=== PATIENT | female | born 1960 | race Caucasian/White ===

== ENCOUNTER 2019-03-23 01:07 | Inpatient (IN) ==
[2019-03-23] MEDS ORDERED: Ketorolac 30 MG/ML VIAL IVP PRN (03:09)
[2019-03-23] MEDS ORDERED: *HR* FentaNYL (PF) 100 MCG/2 ML VIAL IVP ONE (03:26)
[2019-03-23 03:48] LABS: Basophils % 0.2 %; Eosinophils % 0.1 %; Hematocrit 43.2 % (35.3-44.9); Hemoglobin 14.9 g/dL (11.5-15.4); Immature Granulocytes % 0.2 % (0-4); Lymphocytes # 0.9 K/mcL (0.6-4.6); Lymphocytes % 10.5 %; Mean Corpuscular HGB Conc 34.5 g/dL (31.6-35.5); Mean Corpuscular Hemoglobin 30.8 pg (28.0-33.3); Mean Corpuscular Volume 89.4 fL (83.0-100.0); Mean Platelet Volume 10.2 fL (9.4-12.4); Monocytes # 0.3 K/mcL (0.0-1.3); Neutrophils # 7.7 K/mcL (1.6-8.9); Platelet Count 230 K/mcL (140-400); Red Blood Count 4.83 M/mcL (3.82-4.97); Red Cell Distribution Width 13.3 % (11.5-14.5)
[2019-03-23 04:00] LABS: INR 1.1
[2019-03-23 04:03] LABS: Activated Partial Thrombo Time 30.9 Seconds (26.0-36.0)
[2019-03-23 04:07] LABS: Phosphorous 3.3 mg/dL (2.7-4.5)
[2019-03-23 04:08] LABS: Alanine Aminotransferase 9 Units/L (7-52); Albumin 4.4 g/dL (3.5-5.7); Albumin/Globulin Ratio 1.4 (1.1-2.2); Alkaline Phosphatase 84 Units/L (34-104); Aspartate Amino Transferase 16 Units/L (13-39); BUN/Creatinine Ratio 11 (6-26); Bilirubin,Direct 0.2 mg/dL (0.0-0.2); Bilirubin,Indirect 0.5 mg/dL (0.0-1.2); Bilirubin,Total 0.7 mg/dL (0.3-1.0); Blood Urea Nitrogen 8 mg/dL (8-23); Calcium 9.6 mg/dL (8.6-10.3); Carbon Dioxide 29 mEq/L (23-29); Chloride 94 mEq/L (98-107); Globulin 3.2 g/dL (2.4-3.5); Glucose 147 mg/dL (70-105); Magnesium 2.2 mg/dL (1.6-2.6); Osmolality,Calculated 277 (280-300); Potassium 3.2 mEq/L (3.5-5.1); Sodium 133 mEq/L (136-145); Total Protein 7.6 g/dL (6.4-8.9); eGFR For African Americans > 60 (> 60); eGFR For Non-African Americans > 60 (> 60)
[2019-03-23] MEDS: 0.9 % Sodium Chloride w KCl 40 MEQ/1,000 ML MLS IVC SCH ×2 (04:11→09:50)
[2019-03-23 04:27] LABS: Thyroid Stimulating Hormone 0.917 mcIU/mL (0.340-5.600)
[2019-03-23] MEDS ORDERED: *HR* FentaNYL (PF) 100 MCG/2 ML VIAL IVP PRN (08:19)
[2019-03-23] MEDS: Pantoprazole 40 MG VIAL IVP SCH (08:56)
[2019-03-23] MEDS: Sennosides/Docusate Sodium TABLET PO SCH ×2 (13:57→20:05)
[2019-03-23] MEDS: 0.9 % Sodium Chloride 1,000 ML IVC SCH (15:03)
[2019-03-23] MEDS: Ondansetron 4 MG/2 ML VIAL IVP PRN (15:56)
[2019-03-23] MEDS: *HR* Promethazine 25 MG/ML VIAL IVP PRN (20:02)
[2019-03-23] MEDS ORDERED: Milk and Molasses Enema 200 ML RC ONE (21:55)
[2019-03-23] MEDS: Lactulose Oral Soln 20 GM/30 ML UDC PO SCH (23:19)
[2019-03-24 02:05] LABS: Hematocrit 44.2 % (35.3-44.9); Hemoglobin 15.3 g/dL (11.5-15.4); Mean Corpuscular HGB Conc 34.6 g/dL (31.6-35.5); Mean Corpuscular Hemoglobin 30.4 pg (28.0-33.3); Mean Corpuscular Volume 87.9 fL (83.0-100.0); Mean Platelet Volume 10.4 fL (9.4-12.4); Platelet Count 266 K/mcL (140-400); Red Blood Count 5.03 M/mcL (3.82-4.97); Red Cell Distribution Width 13.6 % (11.5-14.5); White Blood Count 9.9 K/mcL (4.3-11.1)
[2019-03-24 02:31] LABS: BUN/Creatinine Ratio 16 (6-26); Blood Urea Nitrogen 10 mg/dL (8-23); Calcium 9.1 mg/dL (8.6-10.3); Carbon Dioxide 28 mEq/L (23-29); Chloride 102 mEq/L (98-107); Glucose 138 mg/dL (70-105); Osmolality,Calculated 291 (280-300); Sodium 140 mEq/L (136-145); eGFR For African Americans > 60 (> 60); eGFR For Non-African Americans > 60 (> 60)
[2019-03-24] MEDS: *HR* Promethazine 25 MG/ML VIAL IVP PRN (04:43)
[2019-03-24] MEDS: 0.9 % Sodium Chloride 1,000 ML IVC SCH ×2 (04:43→20:06)
[2019-03-24] MEDS: Lactulose Oral Soln 20 GM/30 ML UDC PO SCH ×4 (06:57→22:06)
[2019-03-24] MEDS: Sennosides/Docusate Sodium TABLET PO SCH ×2 (08:35→22:06)
[2019-03-24] MEDS: Pantoprazole 40 MG VIAL IVP SCH (08:35)
[2019-03-24] MEDS ORDERED: Milk and Molasses Enema 200 ML RC ONE (12:09)
[2019-03-24] MEDS: Ondansetron 4 MG/2 ML VIAL IVP PRN (20:03)
[2019-03-25 05:10] LABS: Hematocrit 40.7 % (35.3-44.9); Mean Corpuscular HGB Conc 33.7 g/dL (31.6-35.5); Mean Corpuscular Hemoglobin 30.4 pg (28.0-33.3); Mean Corpuscular Volume 90.2 fL (83.0-100.0); Mean Platelet Volume 10.6 fL (9.4-12.4); Platelet Count 211 K/mcL (140-400); Red Blood Count 4.51 M/mcL (3.82-4.97); Red Cell Distribution Width 13.7 % (11.5-14.5)
[2019-03-25 05:11] LABS: Hemoglobin 13.7 g/dL (11.5-15.4)
[2019-03-25 05:53] LABS: Alanine Aminotransferase 10 Units/L (7-52); Albumin 3.6 g/dL (3.5-5.7); Albumin/Globulin Ratio 1.4 (1.1-2.2); Alkaline Phosphatase 61 Units/L (34-104); Aspartate Amino Transferase 23 Units/L (13-39); BUN/Creatinine Ratio 19 (6-26); Bilirubin,Total 0.4 mg/dL (0.3-1.0); Blood Urea Nitrogen 13 mg/dL (8-23); Calcium 8.8 mg/dL (8.6-10.3); Carbon Dioxide 26 mEq/L (23-29); Chloride 100 mEq/L (98-107); Globulin 2.6 g/dL (2.4-3.5); Glucose 112 mg/dL (70-105); Osmolality,Calculated 287 (280-300); Potassium 2.8 mEq/L (3.5-5.1); Sodium 138 mEq/L (136-145); Total Protein 6.2 g/dL (6.4-8.9); eGFR For African Americans > 60 (> 60); eGFR For Non-African Americans > 60 (> 60)
[2019-03-25] MEDS: Ondansetron 4 MG/2 ML VIAL IVP PRN (06:39)
[2019-03-25] MEDS ORDERED: Methylnaltrexone 12 MG/0.6 ML SYRINGE SQ ONE (10:37)
[2019-03-25] MEDS ORDERED: Bisacodyl 10 MG RECTAL SUPPOSITORY RC PRN (10:40)
[2019-03-25] MEDS ORDERED: *HR* HYDROcodone/Acet 10/325 mg TABLET PO PRN (10:53)
[2019-03-25] MEDS: 0.9 % Sodium Chloride 1,000 ML IVC SCH (11:13)
[2019-03-25] MEDS: Pantoprazole 40 MG VIAL IVP SCH (11:13)
[2019-03-25] MEDS: Lactulose Oral Soln 20 GM/30 ML UDC PO SCH ×3 (11:13→19:50)
[2019-03-25] MEDS: Sennosides/Docusate Sodium TABLET PO SCH ×2 (11:14→19:50)
[2019-03-26] MEDS: 0.9 % Sodium Chloride 1,000 ML IVC SCH ×2 (00:50→17:56)
[2019-03-26 01:36] LABS: Hematocrit 41.1 % (35.3-44.9); Hemoglobin 13.6 g/dL (11.5-15.4); Mean Corpuscular HGB Conc 33.1 g/dL (31.6-35.5); Mean Corpuscular Hemoglobin 30.8 pg (28.0-33.3); Mean Corpuscular Volume 93.2 fL (83.0-100.0); Mean Platelet Volume 10.3 fL (9.4-12.4); Platelet Count 179 K/mcL (140-400); Red Blood Count 4.41 M/mcL (3.82-4.97); Red Cell Distribution Width 13.7 % (11.5-14.5)
[2019-03-26 02:00] LABS: Alanine Aminotransferase 13 Units/L (7-52); Albumin 3.6 g/dL (3.5-5.7); Albumin/Globulin Ratio 1.5 (1.1-2.2); Alkaline Phosphatase 57 Units/L (34-104); Aspartate Amino Transferase 24 Units/L (13-39); BUN/Creatinine Ratio 24 (6-26); Bilirubin,Total 0.5 mg/dL (0.3-1.0); Blood Urea Nitrogen 18 mg/dL (8-23); Calcium 8.8 mg/dL (8.6-10.3); Carbon Dioxide 29 mEq/L (23-29); Chloride 100 mEq/L (98-107); Globulin 2.4 g/dL (2.4-3.5); Glucose 95 mg/dL (70-105); Osmolality,Calculated 290 (280-300); Potassium 3.1 mEq/L (3.5-5.1); Sodium 139 mEq/L (136-145); eGFR For African Americans > 60 (> 60); eGFR For Non-African Americans > 60 (> 60)
[2019-03-26] MEDS ORDERED: Potassium Chloride 20 MEQ, Lidocaine 1% 2 ML in 0.9 % Sodium Chloride 250 ML IVPB ONE (02:22)
[2019-03-26] MEDS: Lactulose Oral Soln 20 GM/30 ML UDC PO SCH ×2 (08:25→17:41)
[2019-03-26] MEDS: Sennosides/Docusate Sodium TABLET PO SCH (08:26)
[2019-03-26] MEDS: Pantoprazole 40 MG VIAL IVP SCH (08:34)
[2019-03-26] MEDS ORDERED: *HR* FentaNYL (PF) 100 MCG/2 ML VIAL ONE ×3 (12:19→21:41)
[2019-03-26] MEDS ORDERED: *HR* Midazolam HCl 5 MG/5 ML VIAL IVP ONE (12:20)
[2019-03-26] MEDS: *HR* FentaNYL (PF) 100 MCG/2 ML VIAL IVP ONE ×2 (12:30→12:39)
[2019-03-26] MEDS: *HR* Midazolam HCl 5 MG/5 ML VIAL IVP ONE ×2 (12:30→12:36)
[2019-03-26] MEDS ORDERED: *HR* Meperidine 25 MG/ML SYRINGE IVP PRN (18:42)
[2019-03-26] MEDS ORDERED: Acetaminophen IV 1,000 MG/100 ML INFUS..BTL IVPB ONE (18:42)
[2019-03-26] MEDS ORDERED: *HR* Midazolam HCl 2 MG/2 ML VIAL IVP PRN (18:42)
[2019-03-26] MEDS ORDERED: Ringers Solution, Lactated 1,000 ML IVC SCH (18:45)
[2019-03-26] MEDS ORDERED: *HR* Propofol 200 MG/20 ML VIAL IVP ONE (18:51)
[2019-03-26] MEDS ORDERED: Piperacillin/Tazobactam 3.375 GM in 0.9 % Sodium Chloride Mini Bag 100 ML IVPB ONE (19:00)
[2019-03-26] MEDS ORDERED: Lidocaine -MPF 2% 2 ML VIAL ONE (19:16)
[2019-03-26] MEDS ORDERED: *HR* Midazolam HCl 2 MG/2 ML VIAL ONE (19:17)
[2019-03-26] MEDS ORDERED: Acetaminophen IV 1,000 MG/100 ML INFUS..BTL ONE (19:26)
[2019-03-26] MEDS ORDERED: *HR* PHENYLEPHRINE 1,000 MCG/10 ML SYRINGE IVP ONE (19:42)
[2019-03-26] MEDS ORDERED: EPHEDrine 50 MG/ML VIAL ONE (19:43)
[2019-03-26] MEDS ORDERED: *HR* HYDROMORPHONE 2 MG/ML VIAL ONE (20:01)
[2019-03-26] MEDS ORDERED: *HR* Magnesium Sulfate 1 GM/2 ML VIAL ONE (20:13)
[2019-03-26] MEDS ORDERED: Neostigmine Methylsulfate 3 MG/3 ML SYRINGE ONE (21:35)
[2019-03-26] MEDS: *HR* HYDROmorphone (PF) 1 MG/ML SYRINGE IVP PRN ×2 (23:29→23:43)
[2019-03-27] MEDS: Ondansetron 4 MG/2 ML VIAL IVP PRN
[2019-03-27] MEDS: *HR* HYDROmorphone (PF) 1 MG/ML SYRINGE IVP PRN ×4 (00:01→00:44)
[2019-03-27] MEDS: Lactulose Oral Soln 20 GM/30 ML UDC PO SCH (00:11)
[2019-03-27] MEDS: Sennosides/Docusate Sodium TABLET PO SCH (00:12)
[2019-03-27] MEDS ORDERED: *HR* FentaNYL PATCH 25 MCG PATCH TD SCH ×2 (00:30→04:30)
[2019-03-27] MEDS ORDERED: *HR* Heparin 5,000 UNIT/ML VIAL SQ SCH (01:33)
[2019-03-27] MEDS ORDERED: *HR* FentaNYL (PF) 100 MCG/2 ML VIAL IVP PRN (01:33)
[2019-03-27] MEDS ORDERED: Acetaminophen IV 1,000 MG/100 ML INFUS..BTL IVPB SCH ×3 (01:33→03:00)
[2019-03-27] MEDS ORDERED: Piperacillin/Tazobactam 3.375 GM in 0.9 % Sodium Chloride Mini Bag 100 ML IVPB SCH (01:33)
[2019-03-27] MEDS ORDERED: Ondansetron 4 MG/2 ML VIAL IVP PRN (01:33)
[2019-03-27] MEDS: 0.9 % Sodium Chloride 1,000 ML IVC SCH ×4 (02:17→20:33)
[2019-03-27] MEDS: Acetaminophen IV 1,000 MG/100 ML INFUS..BTL IVPB SCH ×4 (03:04→20:23)
[2019-03-27] MEDS: Piperacillin/Tazobactam 3.375 GM in 0.9 % Sodium Chloride Mini Bag 100 ML IVPB SCH ×3 (05:01→20:22)
[2019-03-27] MEDS: *HR* Heparin 5,000 UNIT/ML VIAL SQ SCH ×2 (05:03→18:12)
[2019-03-27 06:32] LABS: Hematocrit 43.4 % (35.3-44.9); Hemoglobin 13.9 g/dL (11.5-15.4); Mean Corpuscular Hemoglobin 30.3 pg (28.0-33.3); Mean Corpuscular Volume 94.8 fL (83.0-100.0); Mean Platelet Volume 10.9 fL (9.4-12.4); Platelet Count 277 K/mcL (140-400); Red Blood Count 4.58 M/mcL (3.82-4.97)
[2019-03-27 06:52] LABS: White Blood Count 13.9 K/mcL (4.3-11.1)
[2019-03-27 06:55] LABS: Alanine Aminotransferase 18 Units/L (7-52); Albumin 2.8 g/dL (3.5-5.7); Albumin/Globulin Ratio 1.6 (1.1-2.2); Alkaline Phosphatase 42 Units/L (34-104); Aspartate Amino Transferase 22 Units/L (13-39); BUN/Creatinine Ratio 26 (6-26); Bilirubin,Total 1.2 mg/dL (0.3-1.0); Blood Urea Nitrogen 22 mg/dL (8-23); Calcium 7.7 mg/dL (8.6-10.3); Carbon Dioxide 21 mEq/L (23-29); Chloride 107 mEq/L (98-107); Globulin 1.7 g/dL (2.4-3.5); Glucose 128 mg/dL (70-105); Osmolality,Calculated 295 (280-300); Potassium 4.1 mEq/L (3.5-5.1); Sodium 140 mEq/L (136-145); Total Protein 4.5 g/dL (6.4-8.9); eGFR For African Americans > 60 (> 60); eGFR For Non-African Americans > 60 (> 60)
[2019-03-27 08:21] LABS: Carcinoembryonic Antigen 0.6 ng/mL (Less than 5.0)
[2019-03-27] MEDS ORDERED: Levothyroxine Sodium 100 MCG VIAL IVP SCH (09:00)
[2019-03-27] MEDS: Pantoprazole 40 MG VIAL IVP SCH (09:07)
[2019-03-27] MEDS: Fluconazole 200 MG/100 ML 200 MG/100 ML BAG IVPB SCH (09:09)
[2019-03-27] MEDS ORDERED: Piperacillin/Tazobactam 3.375 GM in 0.9 % Sodium Chloride Mini Bag 100 ML IVPB ONE (19:00)
[2019-03-28] MEDS: Piperacillin/Tazobactam 3.375 GM in 0.9 % Sodium Chloride Mini Bag 100 ML IVPB SCH ×3 (03:56→18:55)
[2019-03-28] MEDS: Acetaminophen IV 1,000 MG/100 ML INFUS..BTL IVPB SCH ×4 (03:56→21:39)
[2019-03-28] MEDS: 0.9 % Sodium Chloride 1,000 ML IVC SCH ×2 (04:02→12:02)
[2019-03-28 06:03] LABS: Hematocrit 32.8 % (35.3-44.9); Mean Corpuscular HGB Conc 33.2 g/dL (31.6-35.5); Mean Corpuscular Hemoglobin 30.3 pg (28.0-33.3); Mean Corpuscular Volume 91.1 fL (83.0-100.0); Mean Platelet Volume 10.9 fL (9.4-12.4); Platelet Count 177 K/mcL (140-400); Red Cell Distribution Width 14.3 % (11.5-14.5); White Blood Count 10.3 K/mcL (4.3-11.1)
[2019-03-28 06:07] LABS: Hemoglobin 10.9 g/dL (11.5-15.4)
[2019-03-28] MEDS: *HR* Heparin 5,000 UNIT/ML VIAL SQ SCH ×2 (06:14→18:14)
[2019-03-28 06:40] LABS: Alanine Aminotransferase 13 Units/L (7-52); Albumin 2.6 g/dL (3.5-5.7); Albumin/Globulin Ratio 1.2 (1.1-2.2); Alkaline Phosphatase 36 Units/L (34-104); Aspartate Amino Transferase 16 Units/L (13-39); BUN/Creatinine Ratio 26 (6-26); Bilirubin,Total 0.7 mg/dL (0.3-1.0); Blood Urea Nitrogen 25 mg/dL (8-23); Calcium 7.9 mg/dL (8.6-10.3); Carbon Dioxide 26 mEq/L (23-29); Chloride 109 mEq/L (98-107); Globulin 2.1 g/dL (2.4-3.5); Glucose 120 mg/dL (70-105); Osmolality,Calculated 298 (280-300); Sodium 141 mEq/L (136-145); Total Protein 4.7 g/dL (6.4-8.9); eGFR For African Americans > 60 (> 60); eGFR For Non-African Americans 59 (> 60)
[2019-03-28] MEDS ORDERED: Potassium Chloride 40 MEQ, Lidocaine 1% 2 ML in 0.9 % Sodium Chloride 500 ML IVPB ONE ×2 (09:42→16:00)
[2019-03-28] MEDS: Levothyroxine Sodium 100 MCG VIAL IVP SCH (10:20)
[2019-03-28] MEDS: Pantoprazole 40 MG VIAL IVP SCH (10:20)
[2019-03-28] MEDS: Fluconazole 200 MG/100 ML 200 MG/100 ML BAG IVPB SCH (10:21)
[2019-03-28] MEDS ORDERED: Ringers Solution, Lactated 1,000 ML IVC SCH (12:45)
[2019-03-29] MEDS: Acetaminophen IV 1,000 MG/100 ML INFUS..BTL IVPB SCH ×4 (03:31→21:25)
[2019-03-29] MEDS: Piperacillin/Tazobactam 3.375 GM in 0.9 % Sodium Chloride Mini Bag 100 ML IVPB SCH ×3 (03:31→18:53)
[2019-03-29 05:48] LABS: Basophils % 0.1 %; Eosinophils % 0.4 %; Hematocrit 30.8 % (35.3-44.9); Hemoglobin 9.9 g/dL (11.5-15.4); Immature Granulocytes % 1.3 % (0-4); Lymphocytes # 0.8 K/mcL (0.6-4.6); Mean Corpuscular HGB Conc 32.1 g/dL (31.6-35.5); Mean Corpuscular Hemoglobin 30.7 pg (28.0-33.3); Mean Corpuscular Volume 95.4 fL (83.0-100.0); Mean Platelet Volume 10.7 fL (9.4-12.4); Monocytes # 0.2 K/mcL (0.0-1.3); Monocytes % 3.1 %; Neutrophils # 5.9 K/mcL (1.6-8.9); Platelet Count 160 K/mcL (140-400); Red Blood Count 3.23 M/mcL (3.82-4.97); Red Cell Distribution Width 14.6 % (11.5-14.5); Segmented Neutrophils % 84.1 %
[2019-03-29 06:11] LABS: BUN/Creatinine Ratio 21 (6-26); Blood Urea Nitrogen 13 mg/dL (8-23); Carbon Dioxide 22 mEq/L (23-29); Chloride 110 mEq/L (98-107); Glucose 76 mg/dL (70-105); Magnesium 2.1 mg/dL (1.6-2.6); Osmolality,Calculated 285 (280-300); Potassium 3.3 mEq/L (3.5-5.1); Sodium 138 mEq/L (136-145); eGFR For African Americans > 60 (> 60); eGFR For Non-African Americans > 60 (> 60)
[2019-03-29] MEDS: *HR* Heparin 5,000 UNIT/ML VIAL SQ SCH ×2 (06:18→18:19)
[2019-03-29] MEDS ORDERED: Potassium Chloride 40 MEQ, Lidocaine 1% 2 ML in 0.9 % Sodium Chloride 500 ML IVPB ONE (07:54)
[2019-03-29] MEDS: 0.9 % Sodium Chloride 1,000 ML IVC SCH (10:34)
[2019-03-29] MEDS: Pantoprazole 40 MG VIAL IVP SCH (11:11)
[2019-03-29] MEDS: Levothyroxine Sodium 100 MCG VIAL IVP SCH (11:11)
[2019-03-29] MEDS: Fluconazole 200 MG/100 ML 200 MG/100 ML BAG IVPB SCH (11:15)
[2019-03-29] MEDS ORDERED: Furosemide 40 MG/4 ML VIAL IVP ONE (15:01)
[2019-03-30] MEDS ORDERED: *HR* FentaNYL PATCH 25 MCG PATCH TD SCH (01:00)
[2019-03-30] MEDS: Piperacillin/Tazobactam 3.375 GM in 0.9 % Sodium Chloride Mini Bag 100 ML IVPB SCH ×2 (03:33→10:52)
[2019-03-30] MEDS: Acetaminophen IV 1,000 MG/100 ML INFUS..BTL IVPB SCH ×2 (03:33→09:33)
[2019-03-30 05:40] LABS: Hematocrit 29.9 % (35.3-44.9); Hemoglobin 9.6 g/dL (11.5-15.4); Mean Corpuscular HGB Conc 32.1 g/dL (31.6-35.5); Mean Corpuscular Hemoglobin 29.7 pg (28.0-33.3); Mean Corpuscular Volume 92.6 fL (83.0-100.0); Mean Platelet Volume 10.7 fL (9.4-12.4); Platelet Count 182 K/mcL (140-400); Red Blood Count 3.23 M/mcL (3.82-4.97); Red Cell Distribution Width 14.6 % (11.5-14.5); White Blood Count 4.4 K/mcL (4.3-11.1)
[2019-03-30] MEDS: *HR* Heparin 5,000 UNIT/ML VIAL SQ SCH ×2 (06:00→16:22)
[2019-03-30 06:05] LABS: BUN/Creatinine Ratio 17 (6-26); Blood Urea Nitrogen 10 mg/dL (8-23); Calcium 8.1 mg/dL (8.6-10.3); Carbon Dioxide 21 mEq/L (23-29); Chloride 105 mEq/L (98-107); Glucose 76 mg/dL (70-105); Magnesium 1.8 mg/dL (1.6-2.6); Osmolality,Calculated 282 (280-300); Potassium 2.8 mEq/L (3.5-5.1); Sodium 137 mEq/L (136-145); eGFR For African Americans > 60 (> 60); eGFR For Non-African Americans > 60 (> 60)
[2019-03-30] MEDS ORDERED: Furosemide 40 MG/4 ML VIAL IVP SCH (09:00)
[2019-03-30] MEDS ORDERED: Furosemide 20 MG TABLET PO SCH (09:00)
[2019-03-30] MEDS: Potassium Chloride Elixir 20 MEQ/15 ML UDC PO SCH ×2 (09:40→13:15)
[2019-03-30] MEDS: Fluconazole 200 MG/100 ML 200 MG/100 ML BAG IVPB SCH (09:41)
[2019-03-30] MEDS ORDERED: Acetaminophen 325 MG TABLET PO PRN (10:23)
[2019-03-30] MEDS ORDERED: Potassium Chloride Elixir 20 MEQ/15 ML UDC PO ONE (12:44)
[2019-03-30] MEDS: *HR* HYDROcodone/Acet 10/325 mg TABLET PO PRN (16:22)
[2019-03-30] MEDS: Furosemide 40 MG/4 ML VIAL IVP SCH (16:22)
[2019-03-30] MEDS: 0.9 % Sodium Chloride 1,000 ML IVC SCH (20:41)
[2019-03-31] MEDS: *HR* HYDROcodone/Acet 10/325 mg TABLET PO PRN ×2 (01:03→07:21)
[2019-03-31 05:30] LABS: Hematocrit 30.2 % (35.3-44.9); Hemoglobin 9.7 g/dL (11.5-15.4)
[2019-03-31 05:43] LABS: BUN/Creatinine Ratio 19 (6-26); Blood Urea Nitrogen 9 mg/dL (8-23); Calcium 8.1 mg/dL (8.6-10.3); Carbon Dioxide 27 mEq/L (23-29); Chloride 97 mEq/L (98-107); Glucose 101 mg/dL (70-105); Magnesium 1.5 mg/dL (1.6-2.6); Osmolality,Calculated 279 (280-300); Potassium 2.7 mEq/L (3.5-5.1); Sodium 135 mEq/L (136-145); eGFR For African Americans > 60 (> 60); eGFR For Non-African Americans > 60 (> 60)
[2019-03-31] MEDS: *HR* Heparin 5,000 UNIT/ML VIAL SQ SCH (05:51)
[2019-03-31 07:33] VITALS: BP 140/70
[2019-03-31] MEDS ORDERED: amLODIPine 5 MG TABLET PO SCH (09:00)
[2019-03-31] MEDS: Furosemide 40 MG/4 ML VIAL IVP SCH (09:04)
== END 2019-03-31 13:18 | disposition home health service (06) | DRG 231 ==
LOC: 3BNU → SUATTDRO 02:52 → 3ANU 03-26 16:32
PROVIDERS: ADMIT Internal Medicine; ATTEND Internal Medicine

== ENCOUNTER 2020-02-12 12:21 | Inpatient (IN) ==
[2020-02-12] MEDS ORDERED: Famotidine 20 MG/2 ML VIAL IVP ONE (12:30)
[2020-02-12] MEDS ORDERED: *HR* Labetalol 20 MG/4 ML SYRINGE IVP PRN (13:11)
[2020-02-12] MEDS ORDERED: *HR* Promethazine 25 MG/ML VIAL IVP PRN (13:11)
[2020-02-12] MEDS ORDERED: cefOXitin 2,000 MG in Water for inj. (sterile) 20 ML IVP ONE (13:36)
[2020-02-12] MEDS ORDERED: Ringers Solution, Lactated 1,000 ML IVC SCH (13:45)
[2020-02-12] MEDS ORDERED: *HR* OxyCODONE Immed Rel 5 MG TABLET PO ONE (15:44)
[2020-02-12] MEDS ORDERED: Lidocaine HCL 4 ML Topical Solution (Laryng-O-Jet Kit Sterile Pak) TP ONE (15:59)
[2020-02-12] MEDS ORDERED: *HR* Rocuronium Bromide 50 MG/5 ML VIAL ONE ×2 (15:59→22:07)
[2020-02-12] MEDS ORDERED: Lidocaine -MPF 2% 2 ML VIAL ONE (16:07)
[2020-02-12] MEDS ORDERED: Ondansetron 4 MG/2 ML VIAL ONE ×2 (16:07→22:43)
[2020-02-12] MEDS ORDERED: *HR* Propofol 200 MG/20 ML VIAL IVP ONE (16:09)
[2020-02-12] MEDS ORDERED: *HR* FentaNYL (PF) 100 MCG/2 ML VIAL ONE (16:48)
[2020-02-12] MEDS ORDERED: *HR* HYDROMORPHONE 2 MG/ML VIAL ONE ×2 (18:22→22:56)
[2020-02-12] MEDS ORDERED: Dexamethasone 4 MG/ML VIAL ONE ×2 (19:50→22:43)
[2020-02-12] MEDS ORDERED: CefOXitin 2,000 MG VIAL ONE (22:07)
[2020-02-12] MEDS ORDERED: *HR* Magnesium Sulfate 1 GM/2 ML VIAL ONE (22:25)
[2020-02-12] MEDS: *HR* HYDROmorphone (PF) 1 MG/ML SYRINGE IVP PRN ×3 (23:33→23:55)
[2020-02-13] MEDS ORDERED: Acetaminophen IV 1,000 MG/100 ML INFUS..BTL IVPB ONE (00:02)
[2020-02-13] MEDS: *HR* HYDROmorphone (PF) 1 MG/ML SYRINGE IVP PRN ×3 (00:05→00:31)
[2020-02-13] MEDS ORDERED: *HR* Promethazine 25 MG/ML VIAL IVP PRN (01:20)
[2020-02-13] MEDS ORDERED: Naloxone 0.4 MG/ML INJ IVP PRN (01:20)
[2020-02-13] MEDS ORDERED: Ondansetron 4 MG/2 ML VIAL IVP PRN (01:20)
[2020-02-13] MEDS ORDERED: *HR* Metoprolol 5 MG/5 ML VIAL IVP PRN (01:20)
[2020-02-13] MEDS: 0.9 % Sodium Chloride 1,000 ML IVC SCH ×2 (01:57→12:54)
[2020-02-13] MEDS: Acetaminophen IV 1,000 MG/100 ML INFUS..BTL IVPB SCH ×4 (02:37→20:30)
[2020-02-13 03:56] LABS: Basophils % 0.1 %; Eosinophils % 0.1 %; Hemoglobin 13.8 g/dL (11.5-15.4); Immature Granulocytes % 0.2 % (0-4); Lymphocytes # 0.5 K/mcL (0.6-4.6); Lymphocytes % 3.8 %; Mean Corpuscular HGB Conc 32.9 g/dL (31.6-35.5); Mean Corpuscular Hemoglobin 31.7 pg (28.0-33.3); Mean Corpuscular Volume 96.6 fL (83.0-100.0); Monocytes # 0.6 K/mcL (0.0-1.3); Monocytes % 4.5 %; Neutrophils # 12.6 K/mcL (1.6-8.9); Platelet Count 186 K/mcL (140-400); Red Blood Count 4.35 M/mcL (3.82-4.97); Red Cell Distribution Width 12.5 % (11.5-14.5); Segmented Neutrophils % 91.3 %; White Blood Count 13.9 K/mcL (4.3-11.1)
[2020-02-13 04:09] LABS: BUN/Creatinine Ratio 10 (6-26); Blood Urea Nitrogen 8 mg/dL (8-23); Calcium 8.8 mg/dL (8.6-10.3); Carbon Dioxide 25 mEq/L (23-29); Chloride 106 mEq/L (98-107); Glucose 150 mg/dL (70-105); Magnesium 2.5 mg/dL (1.6-2.6); Osmolality,Calculated 285 (280-300); Phosphorous 3.2 mg/dL (2.7-4.5); Potassium 3.7 mEq/L (3.5-5.1); Sodium 137 mEq/L (136-145); eGFR For African Americans > 60 (> 60); eGFR For Non-African Americans > 60 (> 60)
[2020-02-13] MEDS: Piperacillin/Tazobactam 3.375 GM in 0.9 % Sodium Chloride Mini Bag 100 ML IVPB SCH ×3 (04:19→15:20)
[2020-02-13] MEDS: Pantoprazole 40 MG VIAL IVP SCH (08:20)
[2020-02-13] MEDS: Levothyroxine Sodium 100 MCG VIAL IVP SCH (08:20)
[2020-02-13] MEDS ORDERED: Chloraseptic Spray 177 ML BOTTLE MM PRN (10:47)
[2020-02-13] MEDS ORDERED: Saliva Stimulant 100ml BOTTLE PO PRN (10:47)
[2020-02-13] MEDS: Ipratropium/Albuterol Neb 3 ML IH SCH ×2 (15:32→22:11)
[2020-02-14] MEDS: Acetaminophen IV 1,000 MG/100 ML INFUS..BTL IVPB SCH ×4 (03:09→21:09)
[2020-02-14] MEDS: 0.9 % Sodium Chloride 1,000 ML IVC SCH ×2 (04:04→12:52)
[2020-02-14 05:25] LABS: Basophils % 0.1 %; Eosinophils % 0.1 %; Mean Corpuscular Volume 99.4 fL (83.0-100.0)
[2020-02-14 05:27] LABS: Hematocrit 35.5 % (35.3-44.9); Hemoglobin 11.6 g/dL (11.5-15.4); Immature Granulocytes % 0.4 % (0-4); Immature Platelets 7.4 % (1.1-6.1); Lymphocytes # 1.1 K/mcL (0.6-4.6); Lymphocytes % 10.8 %; Mean Corpuscular HGB Conc 32.7 g/dL (31.6-35.5); Mean Corpuscular Hemoglobin 32.5 pg (28.0-33.3); Mean Platelet Volume 11.2 fL (9.4-12.4); Monocytes # 0.6 K/mcL (0.0-1.3); Monocytes % 5.6 %; Platelet Count 156 K/mcL (140-400); Red Blood Count 3.57 M/mcL (3.82-4.97); Red Cell Distribution Width 12.6 % (11.5-14.5); White Blood Count 10.4 K/mcL (4.3-11.1)
[2020-02-14 05:37] LABS: Neutrophils # 8.6 K/mcL (1.6-8.9)
[2020-02-14 05:44] LABS: BUN/Creatinine Ratio 19 (6-26); Blood Urea Nitrogen 13 mg/dL (8-23); Calcium 8.7 mg/dL (8.6-10.3); Carbon Dioxide 23 mEq/L (23-29); Chloride 109 mEq/L (98-107); Glucose 110 mg/dL (70-105); Magnesium 2.1 mg/dL (1.6-2.6); Osmolality,Calculated 291 (280-300); Phosphorous 2.7 mg/dL (2.7-4.5); Potassium 3.5 mEq/L (3.5-5.1); Sodium 140 mEq/L (136-145); eGFR For African Americans > 60 (> 60); eGFR For Non-African Americans > 60 (> 60)
[2020-02-14] MEDS: Ipratropium/Albuterol Neb 3 ML IH SCH ×3 (07:44→21:59)
[2020-02-14] MEDS: Pantoprazole 40 MG VIAL IVP SCH (09:45)
[2020-02-14] MEDS: Levothyroxine Sodium 100 MCG VIAL IVP SCH (09:46)
[2020-02-14] MEDS: *HR* Metoprolol 5 MG/5 ML VIAL IVP SCH ×2 (12:44→17:48)
[2020-02-15] MEDS: *HR* Metoprolol 5 MG/5 ML VIAL IVP SCH ×2 (00:42→05:38)
[2020-02-15] MEDS: Acetaminophen IV 1,000 MG/100 ML INFUS..BTL IVPB SCH ×3 (02:12→12:19)
[2020-02-15] MEDS: 0.9 % Sodium Chloride 1,000 ML IVC SCH (02:14)
[2020-02-15 06:27] LABS: Basophils % 0.2 %; Eosinophils % 0.1 %; Hematocrit 35.6 % (35.3-44.9); Hemoglobin 11.6 g/dL (11.5-15.4); Immature Granulocytes % 0.7 % (0-4); Lymphocytes % 10.7 %; Mean Corpuscular HGB Conc 32.6 g/dL (31.6-35.5); Mean Corpuscular Hemoglobin 31.5 pg (28.0-33.3); Mean Corpuscular Volume 96.7 fL (83.0-100.0); Mean Platelet Volume 11.4 fL (9.4-12.4); Monocytes # 0.4 K/mcL (0.0-1.3); Monocytes % 3.8 %; Neutrophils # 7.8 K/mcL (1.6-8.9); Platelet Count 150 K/mcL (140-400); Red Blood Count 3.68 M/mcL (3.82-4.97); Red Cell Distribution Width 12.7 % (11.5-14.5); Segmented Neutrophils % 84.5 %; White Blood Count 9.2 K/mcL (4.3-11.1)
[2020-02-15 07:21] LABS: BUN/Creatinine Ratio 13 (6-26); Blood Urea Nitrogen 8 mg/dL (8-23); Calcium 8.9 mg/dL (8.6-10.3); Carbon Dioxide 22 mEq/L (23-29); Chloride 108 mEq/L (98-107); Glucose 96 mg/dL (70-105); Osmolality,Calculated 288 (280-300); Phosphorous 2.7 mg/dL (2.7-4.5); Sodium 140 mEq/L (136-145); eGFR For African Americans > 60 (> 60); eGFR For Non-African Americans > 60 (> 60)
[2020-02-15] MEDS: Ipratropium/Albuterol Neb 3 ML IH SCH ×3 (07:46→22:09)
[2020-02-15] MEDS: Pantoprazole 40 MG VIAL IVP SCH (07:55)
[2020-02-15] MEDS: Levothyroxine Sodium 100 MCG VIAL IVP SCH (07:55)
[2020-02-15] MEDS ORDERED: Potassium Phosphate 44 MEQ in 0.9 % Sodium Chloride 250 ML IVPB ONE (07:59)
[2020-02-15] MEDS ORDERED: D5% in 0.45% NACL w KCl 20 MEQ/1,000 ML MLS IVC SCH (08:00)
[2020-02-15] MEDS: amLODIPine 5 MG TABLET PO SCH (09:51)
[2020-02-15] MEDS ORDERED: Acetaminophen 325 MG TABLET PO PRN (14:38)
[2020-02-15] MEDS: *HR* HYDROcodone/Acet 10/325 mg TABLET PO PRN (18:34)
[2020-02-16] MEDS: *HR* HYDROcodone/Acet 10/325 mg TABLET PO PRN ×3 (01:33→16:49)
[2020-02-16] MEDS: Ipratropium/Albuterol Neb 3 ML IH SCH ×3 (07:33→22:41)
[2020-02-16] MEDS: amLODIPine 5 MG TABLET PO SCH (08:09)
[2020-02-16] MEDS: Furosemide 20 MG TABLET PO SCH (08:09)
[2020-02-16] MEDS: Pantoprazole 40 MG VIAL IVP SCH (08:09)
[2020-02-16] MEDS ORDERED: Spironolactone 25 MG TABLET PO SCH ×2 (09:00→21:00)
[2020-02-16 09:09] LABS: Basophils % 0.5 %; Eosinophils # 0.1 K/mcL (0.0-0.6); Eosinophils % 0.7 %; Hematocrit 38.9 % (35.3-44.9); Hemoglobin 12.4 g/dL (11.5-15.4); Immature Granulocytes % 0.8 % (0-4); Lymphocytes # 1.5 K/mcL (0.6-4.6); Lymphocytes % 18.1 %; Mean Corpuscular HGB Conc 31.9 g/dL (31.6-35.5); Mean Corpuscular Hemoglobin 31.2 pg (28.0-33.3); Mean Corpuscular Volume 97.7 fL (83.0-100.0); Mean Platelet Volume 11.1 fL (9.4-12.4); Monocytes # 0.3 K/mcL (0.0-1.3); Monocytes % 3.7 %; Neutrophils # 6.5 K/mcL (1.6-8.9); Platelet Count 203 K/mcL (140-400); Red Blood Count 3.98 M/mcL (3.82-4.97); Red Cell Distribution Width 12.9 % (11.5-14.5); Segmented Neutrophils % 76.2 %; White Blood Count 8.5 K/mcL (4.3-11.1)
[2020-02-16 09:26] LABS: BUN/Creatinine Ratio 10 (6-26); Blood Urea Nitrogen 8 mg/dL (8-23); Calcium 9.5 mg/dL (8.6-10.3); Carbon Dioxide 25 mEq/L (23-29); Chloride 106 mEq/L (98-107); Glucose 110 mg/dL (70-105); Magnesium 1.8 mg/dL (1.6-2.6); Osmolality,Calculated 289 (280-300); Phosphorous 2.8 mg/dL (2.7-4.5); Potassium 3.4 mEq/L (3.5-5.1); Sodium 140 mEq/L (136-145); eGFR For African Americans > 60 (> 60); eGFR For Non-African Americans > 60 (> 60)
[2020-02-16] MEDS: *HR* Heparin 5,000 UNIT/ML VIAL SQ SCH ×2 (14:41→16:50)
[2020-02-16] MEDS: Nicotine 21 MG PATCH.TD24 TD SCH (14:44)
[2020-02-17] MEDS: *HR* HYDROcodone/Acet 10/325 mg TABLET PO PRN ×2 (01:03→09:05)
[2020-02-17] MEDS: *HR* Heparin 5,000 UNIT/ML VIAL SQ SCH (03:33)
[2020-02-17 07:19] VITALS: BP 138/73
[2020-02-17] MEDS: Ipratropium/Albuterol Neb 3 ML IH SCH (07:54)
[2020-02-17] MEDS: amLODIPine 5 MG TABLET PO SCH (09:06)
[2020-02-17] MEDS: Nicotine 21 MG PATCH.TD24 TD SCH (09:06)
[2020-02-17] MEDS: Furosemide 20 MG TABLET PO SCH (09:06)
== END 2020-02-17 11:21 | disposition home or self-care (01) | DRG 231 ==
LOC: SAMDAY 12:21 → 3BNU 02-13 01:16 → 3ANU 02-13 01:19
PROVIDERS: ADMIT Surgery; ATTEND Surgery